=== PATIENT | female | born 1965 | race Caucasian/White ===

== ENCOUNTER → 2019-07-23 14:41 | Outpatient (BNVA) | payer OTHER, SELFPAY | PROVIDERS: Visit Provider Psychiatry & Neurology Psychiatry | DX: F10.20 Alcohol dependence, uncomplicated (principal); F12.20 Cannabis dependence, uncomplicated; F17.200 Nicotine dependence, unspecified, uncomplicated | CPT/HCPCS: 99204 ==

== ENCOUNTER → 2019-08-26 09:03 | Outpatient (BNVA) | payer OTHER, SELFPAY | PROVIDERS: Visit Provider Psychiatry & Neurology Psychiatry | DX: F17.200 Nicotine dependence, unspecified, uncomplicated (principal); F12.20 Cannabis dependence, uncomplicated; F10.20 Alcohol dependence, uncomplicated; F41.1 Generalized anxiety disorder | CPT/HCPCS: 99213 ==